=== PATIENT | female | born 1990 ===

== ENCOUNTER 2017-12-13 19:44 | Inpatient (IN) | payer OTHER ==
[2017-12-13] MEDS ORDERED: Sodium Chloride 0.9% 1,000 ML IV STA (20:00)
[2017-12-13] MEDS ORDERED: Morphine 4 MG/ML VIAL ONE ×2 (20:08→21:19)
--- NOTE | 2017-12-13 20:59 | ED PDOC ---
Upper Extremity Pain/Injury Time Seen by Provider: 12/13/17 19:53 Chief Complaint (Nursing): Upper Extremity Problem/Injury Chief Complaint (Provider): Upper Extremity Problem/Injury History Per: Patient History/Exam Limitations: no limitations Onset/Duration Of Symptoms: Hrs (x1), Sudden Onset (1x) Current Symptoms Are (Timing): Still Present Additional Complaint(s): Dhara Macias, a 27 year old female, presents to the ED complaining of left elbow pain after falling and hitting elbow upon entering bathtub one hour prior to arrival. The patient states her left elbow developed swelling, pain, and difficulty with movement after the fall. The patient denies injury to head or shoulders. No other complaints were noted. PCP: none provided Past Medical History Reviewed: Historical Data, Nursing Documentation, Vital Signs Vital Signs: Last Vital Signs Temp 97.9 F 12/13/17 19:52 Pulse 58 L 12/13/17 19:52 Resp 18 12/13/17 19:52 BP 127/76 12/13/17 19:52 Pulse Ox 100 12/13/17 19:52 - Medical History PMH: No Chronic Diseases - Surgical History Surgical History: No Surg Hx - Family History Family History: States: Unknown Family Hx - Social History Current smoker - smoking cessation education provided: No Alcohol: None Drugs: Denies - Home Medications Home Medications: Ambulatory Orders Medication Instructions Recorded RX: No Known Home Med 12/13/17 - Allergies Allergies/Adverse Reactions: Allergies Allergy/AdvReac Type Severity Reaction Status Date / Time No Known Allergies Allergy Verified 12/13/17 19:52 Review of Systems ROS Statement: Except As Marked, All Systems Reviewed And Found Negative Musculoskeletal: Positive for: Arm Pain (left elbow with swelling and d eformity). Negative for: Shoulder Pain (or injury) Neurological: Negative for: Other (head injury) Physical Exam - Reviewed Nursing Documentation Reviewed: Yes Vital Signs Reviewed: Yes - Physical Exam Head Exam: Positive for: ATRAUMATIC, NORMOCEPHALIC Cardiovascular/Chest: Positive for: Regular Rate, Rhythm Respiratory: Positive for: Normal Breath Sounds Pulses-Radial (L): 2+ (and ulnar) Gastrointestinal/Abdominal: Positive for: Normal Exam, Soft. Negative for: Tenderness Extremity: Positive for: Tenderness (left elbow upon palpitation), Capillary Refill (of digits < 2 seconds), Deformity (to left elbow), Swelling (significant edema/swelling to left elbow), Other (2+ pulses (radial and ulnar) intact. Sensation to digits of left hand is intact and patient moves all digits freely). Negative for: Normal ROM (limited ROM at left elbow) Neurologic/Psych: Positive for: Alert, Oriented. Negative for: Motor/Sensory Deficits (left elbow and digits) - Laboratory Results Result Diagrams: 12/13/17 21:27 12/13/17 21:27 - ECG O2 Sat by Pulse Oximetry: 100 (RA) Pulse Ox Interpretation: Normal Medical Decision Making Medical Decision Making: Initial Impression: 27 year old female with acute left elbow injury. Initial Plan: * Labs * Morphine 6mg IVP * IV fluids * Zofran inj 4mg IV * XR left elbow Time: 2029 --XR left elbow interpreted by provider: distal humerus fracture with posterior displacement. Time: 2044 --Call made out to Dr. Romero, ortho inbound sales consultant. Time: 2057 --Case discussed with Dr. Romero. Patient will require hospital admission for left elbow repair and reduction tomorrow morning. Patient made aware and agrees with plan of care. Time: 2129 --As per Dr. Romero request reduction attempt be performed at bedside. Reduction performed by provider with limited success. Patient remains n eurovascularly intact with good sensation. Post splint applied to left elbow with sling in use. Case d/w Dr Kennedy. CT elbow also ordered at request of Dr Romero ----- Scribe Attestation: Documented by Jazz Mckeon, acting as a scribe for Jemal Curtis MD. Provider Scribe Attestation: All medical record entries made by the Scribe were at my direction and personally dictated by me. I have reviewed the chart and agree that the record accurately reflects my personal performance of the history, physical exam, medical decision making, and the department course for this patient. I have also personally directed, reviewed, and agree with the discharge instructions and dis position. Disposition - Clinical Impression Clinical Impression: Elbow fracture, left - Patient ED Disposition Is Patient to be Admitted: Yes Counseled Patient/Family Regarding: Studies Performed, Diagnosis - Disposition Disposition Time: 21:00 Condition: FAIR - Pt Status Changed To: Hospital Disposition Of: Inpatient - Admit Certification Admit to Inpatient:: After my assessment, the patient will require hospitalization for at least two midnights. This is because of the severity of symptoms shown, intensity of services needed, and/or the medical risk in this patient being treated as an outpatient. - POA Present On Arrival: Falls Or Trauma
[2017-12-13] MEDS ORDERED: Lactated Ringer's 1,000 ML IV SCH (21:30)
[2017-12-13 21:35] LABS: BASO % 0.7 % (0.0-2.0); EOS % 0.6 % (0.0-4.0); HEMOGLOBIN 13.8 g/dL (12.0-16.0); LYMPH # 2.1 K/uL (1.0-4.3); LYMPH % 37.8 % (20.0-40.0); MEAN CELL VOLUME 94.5 fl (81.0-99.0); MEAN CORPUSCULAR HGB CONC 32.8 g/dL (33.0-37.0); MEAN PLATELET VOLUME 9.2 fl (7.2-11.7); MONO # 0.7 K/uL (0.0-0.8); MONO % 11.9 % (0.0-10.0); NEUT # 2.7 K/uL (1.8-7.0); NRBC % 0.1 % (0.0-0.0); RBC 4.45 Mil/uL (3.80-5.20); RED CELL DISTRIBUTION WIDTH 13.2 % (11.5-14.5); WHITE BLOOD COUNT 5.6 K/uL (4.8-10.8)
[2017-12-13 21:42] LABS: INR 0.9; PROTHROMBIN TIME 10.2 Seconds (9.8-13.1)
[2017-12-13 21:44] LABS: PARTIAL THROMBOPLASTIN TIME 31.7 Seconds (25.6-37.1)
[2017-12-13 21:45] LABS: ALB/GLOB RATIO 1.3 (1.0-2.1); ALBUMIN 4.6 g/dL (3.5-5.0); ALT/SGPT 32 U/L (9-52); AST/SGOT 47 U/L (14-36); BLOOD UREA NITROGEN 11 mg/dl (7-17); CALCIUM 9.1 mg/dL (8.4-10.2); GFR NON-AFRICAN AMERICAN > 60
--- NOTE | 2017-12-13 22:08 | CP.PCM.HP ---
<Mick White - Last Filed: 12/13/17 22:03> History of Present Illness - History of Present Illness History of Present Illness: 27 year old female presented after falling in the bathtub and hitting her elbow. She came to ED after fall. She is complaining of severe pain in left elbow, she had swelling and limited range of motion. Her pain is now worse after closed reduction performed in ED. She is complaining of nausea. No pain in any other joint. She denies any past medical history. PMH: none Medications: None Allergies: NKDA Social: occasional tobacco and alcohol use. Surgical Hx: denies Present on Admission - Present on Admission Any Indicators Present on Admission: No Review of Systems - Review of Systems All systems: reviewed and no additional remarkable complaints except - Musculoskeletal Musculoskeletal: Joint Swelling (L elbow), Other (pain left arm). absent: Numbness, Tingling Past Patient History - Past Social History Alcohol: None Drugs: Denies - PSYCHIATRIC Hx Substance Use: No - SURGICAL HISTORY Hx Surgeries: No - ANESTHESIA Hx Anesthesia: No Meds Allergies/Adverse Reactions: Allergies Allergy/AdvReac Type Severity Reaction Status Date / Time No Known Allergies Allergy Verified 12/13/17 19:52 Physical Exam - Constitutional Appears: Non-toxic - Head Exam Head Exam: ATRAUMATIC, NORMAL INSPECTION, NORMOCEPHALIC - Eye Exam Eye Exam: EOMI, Normal appearance, PERRL - ENT Exam ENT Exam: Mucous Membranes Moist - Respiratory Exam Respiratory Exam: Clear to Auscultation Bilateral, NORMAL BREATHING PATTERN. absent: Rales, Rhonchi, Wheezes - Cardiovascular Exam Cardiovascular Exam: REGULAR RHYTHM, +S1, +S2. absent: Tachycardia, Diastolic murmur, Systolic Murmur - GI/Abdominal Exam GI & Abdominal Exam: Normal Bowel Sounds, Soft. absent: Distended, Guarding, Tenderness - Extremities Exam Extremities exam: Positive for: normal capillary refill. Negative for: pedal edema Additional comments: Left arm wraped in MAKI bandage with sling at approx 90deg flexion 2+radial pulse bilaterally able to move fingers left hand - Neurological Exam Neurological exam: Alert, Oriented x3 - Psychiatric Exam Psychiatric exam: Normal Affect, Normal Mood - Skin Skin Exam: Dry, Intact, Normal Color, Warm Results - Vital Signs Recent Vital Signs: Last Vital Signs Temp 97.9 F 12/13/17 19:52 Pulse 58 L 12/13/17 19:52 Resp 18 12/13/17 19:52 BP 127/76 12/13/17 19:52 Pulse Ox 100 12/13/17 21:54 - Labs Result Diagrams: 12/13/17 21:27 12/13/17 21:27 Labs: Laboratory Results - last 24 hr 12/13/17 12/13/17 12/13/17 20:12 21:27 21:27 WBC 5.6 RBC 4.45 Hgb 13.8 Hct 42.1 MCV 94.5 MCH 31.0 MCHC 32.8 L RDW 13.2 Plt Count 219 MPV 9.2 Neut % (Auto) 49.0 L Lymph % (Auto) 37.8 Gove % (Auto) 11.9 H Eos % (Auto) 0.6 Baso % (Auto) 0.7 Neut # (Auto) 2.7 Lymph # (Auto) 2.1 Gove # (Auto) 0.7 Eos # (Auto) 0.0 Baso # (Auto) 0.0 PT INR APTT Sodium 137 Potassium 3.2 L Chloride 101 Carbon Dioxide 26 Anion Gap 13 BUN 11 Creatinine 0.7 Est GFR ( Amer) > 60 Est GFR (Non-Af Amer) > 60 Random Glucose 98 Calcium 9.1 Total Bilirubin 0.3 AST 47 H ALT 32 Alkaline Phosphatase 85 Total Protein 8.1 Albumin 4.6 Globulin 3.5 Albumin/Globulin Ratio 1.3 Serum HCG, Qual Negative 12/13/17 21:27 WBC RBC Hgb Hct MCV MCH MCHC RDW Plt Count MPV Neut % (Auto) Lymph % (Auto) Gove % (Auto) Eos % (Auto) Baso % (Auto) Neut # (Auto) Lymph # (Auto) Gove # (Auto) Eos # (Auto) Baso # (Auto) PT 10.2 INR 0.9 APTT 31.7 Sodium Potassium Chloride Carbon Dioxide Anion Gap BUN Creatinine Est GFR ( Amer) Est GFR (Non-Af Amer) Random Glucose Calcium Total Bilirubin AST ALT Alkaline Phosphatase Total Protein Albumin Globulin Albumin/Globulin Ratio Serum HCG, Qual Assessment & Plan - Assessment and Plan (Free Text) Assessment: #Fracture of Left Distal Humerus 27 year old female with no PMH aimitted for elbow fracture, s/p closed reduction in ED. For OR in AM. Neurovascularly intact. Hemodynamically stable. -NPO after midnight -IVF -Morphine for pain control -Zofran for nausea -Dr. Romero on consult (ortho) -SCDs -follow up labs : cbc, cmp, coags Case d/w attending. <BrentAdam A - Last Filed: 12/14/17 06:01> Results - Vital Signs Recent Vital Signs: Last Vital Signs Temp 97.6 F 12/14/17 00:28 Pulse 70 12/14/17 00:28 Resp 20 12/14/17 00:28 BP 140/84 12/14/17 00:28 Pulse Ox 100 12/14/17 01:00 - Labs Result Diagrams: 12/13/17 21:27 12/13/17 21:27 Labs: Laboratory Results - last 24 hr 12/13/17 12/13/17 12/13/17 20:12 21:27 21:27 WBC 5.6 RBC 4.45 Hgb 13.8 Hct 42.1 MCV 94.5 MCH 31.0 MCHC 32.8 L RDW 13.2 Plt Count 219 MPV 9.2 Neut % (Auto) 49.0 L Lymph % (Auto) 37.8 Gove % (Auto) 11.9 H Eos % (Auto) 0.6 Baso % (Auto) 0.7 Neut # (Auto) 2.7 Lymph # (Auto) 2.1 Gove # (Auto) 0.7 Eos # (Auto) 0.0 Baso # (Auto) 0.0 PT INR APTT Sodium 137 Potassium 3.2 L Chloride 101 Carbon Dioxide 26 Anion Gap 13 BUN 11 Creatinine 0.7 Est GFR ( Amer) > 60 Est GFR (Non-Af Amer) > 60 Random Glucose 98 Calcium 9.1 Total Bilirubin 0.3 AST 47 H ALT 32 Alkaline Phosphatase 85 Total Protein 8.1 Albumin 4.6 Globulin 3.5 Albumin/Globulin Ratio 1.3 Serum HCG, Qual Negative Urine Color Urine Clarity Urine pH Ur Specific Holt Urine Protein Urine Glucose (UA) Urine Ketones Urine Blood Urine Nitrate Urine Bilirubin Urine Urobilinogen Ur Leukocyte Esterase Urine RBC (Auto) Urine Microscopic WBC Ur Squamous Epith Cells 12/13/17 12/14/17 21:27 03:44 WBC RBC Hgb Hct MCV MCH MCHC RDW Plt Count MPV Neut % (Auto) Lymph % (Auto) Gove % (Auto) Eos % (Auto) Baso % (Auto) Neut # (Auto) Lymph # (Auto) Gove # (Auto) Eos # (Auto) Baso # (Auto) PT 10.2 INR 0.9 APTT 31.7 Sodium Potassium Chloride Carbon Dioxide Anion Gap BUN Creatinine Est GFR ( Amer) Est GFR (Non-Af Amer) Random Glucose Calcium Total Bilirubin AST ALT Alkaline Phosphatase Total Protein Albumin Globulin Albumin/Globulin Ratio Serum HCG, Qual Urine Color Yellow Urine Clarity Clear Urine pH 5.0 Ur Specific Holt 1.014 Urine Protein Negative Urine Glucose (UA) Neg Urine Ketones Negative Urine Blood Negative Urine Nitrate Negative Urine Bilirubin Negative Urine Urobilinogen 0.2-1.0 Ur Leukocyte Esterase Neg Urine RBC (Auto) 2 Urine Microscopic WBC 1 Ur Squamous Epith Cells < 1 Attending/Attestation - Attestation I have personally seen and examined this patient.: Yes I have fully participated in the care of the patient.: Yes I have reviewed all pertinent clinical information: Yes Notes (Text): 12/14/17 05:45 I saw, examined and discussed this patient with Dr White. I agree with the assessment and plan outlined which represent my direct input. This is a 27 years old female who slipped and fell in the bathroom resulting in a displaced, left distal Humerus fracture. External Reduction was attempted in the ED. A Posterior splint with sling was applied. The chest X Ray showed no active pathology, the Urinalysis was normal, EKG showed a sinus bradycardia which was due to the Dilauded given prior to the Attempt at external reduction. This will be repeated. Both INR and PTT were in normal ranges. The potassium was low. This is being repleated. This patient has no cardiac nor pulmonary history and is cleared for Surgery pending the Repeat EKG and improvement in Potassium. Adam Kennedy MD
[2017-12-14] MEDS ORDERED: HYDROmorphone 1 mg/ml ISec IVP ONE (03:41)
[2017-12-14 03:50] LABS: SQUAMOUS EPITHIAL < 1 /hpf (0-5); URINE BILIRUBIN NEGATIVE (NEGATIVE); URINE BLOOD NEGATIVE (NEGATIVE); URINE CLARITY CLEAR (Clear); URINE COLOR YELLOW (YELLOW); URINE GLUCOSE (UA) NEG (Normal); URINE LEUKOCYTE ESTERASE NEG Leu/uL (Negative); URINE PROTEIN NEGATIVE (NEGATIVE); URINE UROBILINOGEN 0.2-1.0 mg/dL (0.2-1.0)
[2017-12-14] MEDS ORDERED: Potassium Chloride 20 mEq ER Tab PO STA (06:02)
[2017-12-14] MEDS: Potassium CL 10 MEQ/50 ML 50 ML IVPB SCH ×2 (06:11→07:23)
[2017-12-14] MEDS ORDERED: STERILE IRRIGATING SOLUTION 15 ML IR ONE (08:56)
--- NOTE | 2017-12-14 09:11 | RAD ---
Date of service: 12/13/2017 HISTORY: admit COMPARISON: No prior. FINDINGS: LUNGS: No active pulmonary disease. PLEURA: No significant pleural effusion identified, no pneumothorax apparent. CARDIOVASCULAR: No atherosclerotic calcification present Normal. OSSEOUS STRUCTURES: No significant abnormalities. VISUALIZED UPPER ABDOMEN: Normal. OTHER FINDINGS: None. IMPRESSION: No active disease.
[2017-12-14] MEDS ORDERED: Propofol 10 mg/ml Inj (20 ML) ONE (09:14)
[2017-12-14] MEDS ORDERED: Rocuronium 10 mg/ml (5 ml) ONE (09:15)
[2017-12-14] MEDS ORDERED: Lactated Ringer's 1,000 ML IV ONE (09:15)
[2017-12-14] MEDS ORDERED: Succinylcholine 200 mg/10 ml Inj IV ONE (09:15)
[2017-12-14] MEDS ORDERED: Midazolam 2 MG/2 ML VIAL ONE (09:15)
--- NOTE | 2017-12-14 09:25 | RAD ---
Date of service: 12/13/2017 PROCEDURE: Radiographs of the left elbow. HISTORY: elbow pain COMPARISON: No prior. FINDINGS: BONES: There is a a diagonal-oblique displaced fracture traversing the lateral epicondyle left humerus. The larger proximal humeral fracture fragment is displaced anteriorly and distally JOINTS: Normal. No osteoarthritis. SOFT TISSUES: Normal. JOINT EFFUSION: Apparent small joint effusion OTHER FINDINGS: None IMPRESSION: There is a a diagonal-oblique displaced fracture traversing the lateral epicondyle left humerus.
[2017-12-14] MEDS ORDERED: Neostigmine 1:1000 (1 mg/ml) Inj ONE (10:03)
--- NOTE | 2017-12-14 10:10 | PCM.SURG1 ---
Surgeon's Initial Post Op Note - Surgeon's Notes Surgeon: Nick Clinical Transformation Specialist: none Type of Anesthesia: General Endo Anesthesia Administered By: DR Pablo Rodríguez Pre-Operative Diagnosis: Fracture dislocarion L elbow. FRacture distal lateral humeral condyle Operative Findings: as above Post-Operative Diagnosis: as above Operation Performed: Closed reduction dislocated L elbow. closed redcution ditsal Layeral huimeral condyle fx. applx long arm posterior split. positioning of fluyor/interpreation of video images Specimen/Specimens Removed: N/A Estimated Blood Loss: EBL {In ML}: 0 Blood Products Given: N/A Drains Used: No Drains Post-Op Condition: Good Date of Surgery/Procedure: 12/14/17 Time of Surgery/Procedure: 09:30 (time in room/anaesthesia indcution time 9:15)
--- NOTE | 2017-12-14 10:14 | CT ---
Date of service: 12/13/2017. PROCEDURE: CT of the left elbow. HISTORY: Elbow fracture. COMPARISON: Correlation made with the plain film radiographs left elbow obtained earlier same day TECHNIQUE: Contiguous helical/transaxial images of the left elbow were obtained. Coronal and sagittal reformats were generated. Radiation dose: Total exam DLP = 308.11 mGy-cm. This CT exam was performed using one or more of the following dose reduction techniques: Automated exposure control, adjustment of the mA and/or kV according to patient size, and/or use of iterative reconstruction technique. FINDINGS: BONES: There is a intra-articular fracture traversing the lateral epicondyle. The radial humeral joint remains intact (with the smaller humeral fragment) however there is anterior and distal displacement dislocation of the larger proximal humeral fragment with respect to the ulna. Nondisplaced radial head fracture not excluded. No significant degenerative osteoarthritis. SOFT TISSUES: There is surrounding soft tissue swelling and joint effusion.. IMPRESSION: There is a diagonal/oblique fracture of the lateral epicondyle however the radiohumeral the joint remains intact (with the smaller humeral fragment). There is anterior and distal displacement dislocation of the larger proximal humeral fragment with respect to the ulna. Nondisplaced radial head fracture not excluded
--- NOTE | 2017-12-14 10:40 | RAD ---
Date of service: 12/14/2017 PROCEDURE: Intraoperative Fluoroscopy. HISTORY: LT ELBOW CLOSED REDUCTION FINDINGS: Fluoroscopic assistance was provided. Fluoroscopy time = 20.9 sec. Radiation dose = 0.52 mGy. . Please refer to the operative report from [facility] Por[facility].
[2017-12-14] MEDS ORDERED: Lactated Ringer's 1,000 ML IV SCH (10:45)
--- NOTE | 2017-12-14 11:24 | CP.PCM.PN ---
Subjective - Date & Time of Evaluation Date of Evaluation: 12/14/17 Time of Evaluation: 07:15 - Subjective Subjective: Patient seen and examined bedside this morning before surgery. Reports left elbow pain 7/10 intensity Hemodynamically stable. Objective - Vital Signs/Intake and Output Vital Signs (last 24 hours): Temp Pulse Resp BP Pulse Ox 98.1 F 42 L 18 118/73 100 12/14/17 10:50 12/14/17 11:05 12/14/17 11:05 12/14/17 11:05 12/14/17 11:05 Intake and Output: 12/14/17 12/14/17 06:59 18:59 Intake Total 900 Balance 900 - Medications Medications: Current Medications Acetaminophen (Tylenol 325mg Tab) 650 mg PO Q6 PRN PRN Reason: Pain, Mild (1-3) Hydromorphone HCl (Dilaudid) 0.5 mg IVP Q5M PRN PRN Reason: Pain, moderate (4-7) Lactated Ringer's (Lactated Ringer's) 1,000 mls @ 100 mls/hr IV .Q10H [facility] Last Admin: 12/13/17 22:03 Dose: 100 mls/hr Lactated Ringer's (Lactated Ringer's) 1,000 mls @ 75 mls/hr IV .[id number] [facility] Morphine Sulfate (Morphine) 4 mg IVP Q4 PRN PRN Reason: Pain, moderate (4-7) Ondansetron HCl (Zofran Inj) 4 mg IVP Q6 PRN PRN Reason: Nausea/Vomiting Last Admin: 12/14/17 04:05 Dose: 4 mg - Labs Labs: 12/13/17 21:27 12/13/17 21:27 PT 10.2 Seconds (9.8-13.1) 12/13/17 21:27 INR 0.9 12/13/17 21:27 APTT 31.7 Seconds (25.6-37.1) 12/13/17 21:27 - Constitutional Appears: No Acute Distress - Head Exam Head Exam: ATRAUMATIC, NORMOCEPHALIC - Eye Exam Eye Exam: Normal appearance - Respiratory Exam Respiratory Exam: Clear to Ausculation Bilateral. absent: Rales - Cardiovascular Exam Cardiovascular Exam: REGULAR RHYTHM, +S1, +S2 - Extremities Exam Additional comments: Left arm wraped in MAKI bandage with sling at approx 90deg flexion 2+radial pulse bilaterally able to move fingers left hand - Neurological Exam Neurological Exam: Alert, Awake Assessment and Plan - Assessment and Plan (Free Text) Plan: Assessment/Plan 1) Fracture of Left Distal Humerus 27 year old female with no PMH aimitted for elbow fracture, s/p closed reduction in ED. For OR today AM Neurovascularly intact. Hemodynamically stable. -NPO -IVF -Morphine for pain control -Zofran for nausea -pending to go OR for surgery with Dr. Romero -SCDs
--- NOTE | 2017-12-14 11:50 | CARD ---
APPROVED REPORT Date of service: 12/13/2017 EKG Measurement Heart [id number] ND [id number] <Conclusion> Sinus bradycardia Otherwise normal ECG
--- NOTE | 2017-12-14 12:24 | RAD ---
Date of service: 12/14/2017 PROCEDURE: Radiographs of the left elbow. HISTORY: Status post closed redcution L elbow fx dislocation COMPARISON: Comparison made with earlier radiographs and CT scan left elbow FINDINGS: BONES: There has been interval closed reduction previously noted displaced intra-articular fracture fracture dislocation of the humerus/elbow.. Satisfactory alignment JOINTS: Normal. No osteoarthritis. SOFT TISSUES: Soft tissue swelling and joint effusion present. JOINT EFFUSION: As above the OTHER FINDINGS: None IMPRESSION: interval closed reduction previously noted displaced intra-articular fracture fracture dislocation of the humerus/elbow.. Satisfactory alignment above discussion for additional details
--- NOTE | 2017-12-14 14:49 | CP.PCM.PCO ---
<JoselynSaNancy - Last Filed: 12/14/17 15:24> Assessment/Plan - Assessment and Plan (Free Text) Assessment: 27 YO female with no sig PMHx is admitted for elbow fracture. Patient underwent closed reduction of dislocated L elbow, and distal humeral condyle fracture. Pt is seen and examined post-op, POD0 VS remain stable, tolerated PO regular diet, and ambulating to the bathroom. Pain is well controlled with pain meds. O: VS reviewed remains afebrile. GEN: NAD, LUE covered, moving all finger, good cap refill HEENT: EOMI Cardio: S1S2, bradycardia, no murmurs Resp: clear breath sounds b/l Abdomen: BS+, NT, soft Neuro: AAO x 3 Ext: no edema, no tenderness A/P: 27 YO Female, doing well POD0, s/p closed reduction of dislocated L elbow, and distal humeral condyle fracture. -Neurovascularly intact. Hemodynamically stable <Karla Alan - Last Filed: 12/15/17 09:46> Attending/Attestation - Attestation I have personally seen and examined this patient.: Yes I have fully participated in the care of the patient.: Yes I have reviewed all pertinent clinical information: Yes Notes (Text): 12/15/17 09:46 agree with findings and plan as above. patient doing well postop. for additional procedures Mon.
[2017-12-15 07:54] LABS: BLOOD UREA NITROGEN 10 mg/dl (7-17); CALCIUM 8.5 mg/dL (8.4-10.2); GFR NON-AFRICAN AMERICAN > 60
--- NOTE | 2017-12-15 09:39 | CP.PCM.PN ---
<AnupamSantosh sarkar - Last Filed: 12/15/17 11:55> Subjective - Date & Time of Evaluation Date of Evaluation: 12/15/17 Time of Evaluation: 07:30 - Subjective Subjective: Patient seen and examined bedside. Patient is s/p closed reduction of dislocated L elbow, and distal humeral condyle fracture. Reports left elbow pain has improved with dilaudid after surgery. Hemodynamically stable. Neurovascularly intact. Objective - Vital Signs/Intake and Output Vital Signs (last 24 hours): Temp Pulse Resp BP Pulse Ox 98.6 F 65 20 125/76 96 12/15/17 08:03 12/15/17 08:03 12/15/17 08:03 12/15/17 08:03 12/15/17 08:03 - Medications Medications: Current Medications Acetaminophen (Tylenol 325mg Tab) 650 mg PO Q6 PRN PRN Reason: Pain, Mild (1-3) Last Admin: 12/15/17 05:19 Dose: 650 mg Hydromorphone HCl (Dilaudid) 0.5 mg IVP Q5M PRN PRN Reason: Pain, moderate (4-7) Lactated Ringer's (Lactated Ringer's) 1,000 mls @ 100 mls/hr IV .Q10H [facility] Last Admin: 12/13/17 22:03 Dose: 100 mls/hr Lactated Ringer's (Lactated Ringer's) 1,000 mls @ 75 mls/hr IV .[id number] [facility] Morphine Sulfate (Morphine) 4 mg IVP Q4 PRN PRN Reason: Pain, moderate (4-7) Ondansetron HCl (Zofran Inj) 4 mg IVP Q6 PRN PRN Reason: Nausea/Vomiting Last Admin: 12/14/17 04:05 Dose: 4 mg - Labs Labs: 12/13/17 21:27 12/15/17 05:25 PT 10.2 Seconds (9.8-13.1) 12/13/17 21:27 INR 0.9 12/13/17 21:27 APTT 31.7 Seconds (25.6-37.1) 12/13/17 21:27 - Constitutional Appears: No Acute Distress - Respiratory Exam Respiratory Exam: Clear to Ausculation Bilateral. absent: Rales - Cardiovascular Exam Cardiovascular Exam: REGULAR RHYTHM, +S1, +S2 - GI/Abdominal Exam GI & Abdominal Exam: Soft, Normal Bowel Sounds. absent: Tenderness - Extremities Exam Additional comments: Left arm wrapped. 2+radial pulse bilaterally.distal neurovascular intact. - Neurological Exam Neurological Exam: Alert, Awake Assessment and Plan - Assessment and Plan (Free Text) Plan: Assessment/Plan 1) Fracture of Left Distal Humerus -s/p closed reduction of dislocated L elbow, and distal humeral condyle fracture POD #1 -pain control dilaudid, morphine -zofran for nausea -incentive spirometry -pending for a 2nd surgery on saturday 2) DVT Prophylaxis -scd <Karla Alan - Last Filed: 12/15/17 12:48> Objective - Vital Signs/Intake and Output Vital Signs (last 24 hours): Temp Pulse Resp BP Pulse Ox 98.6 F 65 20 125/76 96 12/15/17 08:03 12/15/17 08:03 12/15/17 08:03 12/15/17 08:03 12/15/17 08:03 - Medications Medications: Current Medications Acetaminophen (Tylenol 325mg Tab) 650 mg PO Q6 PRN PRN Reason: Pain, Mild (1-3) Last Admin: 12/15/17 05:19 Dose: 650 mg Hydromorphone HCl (Dilaudid) 0.5 mg IVP Q5M PRN PRN Reason: Pain, moderate (4-7) Lactated Ringer's (Lactated Ringer's) 1,000 mls @ 100 mls/hr IV .Q10H [facility] Last Admin: 12/13/17 22:03 Dose: 100 mls/hr Lactated Ringer's (Lactated Ringer's) 1,000 mls @ 75 mls/hr IV .[id number] [facility] Morphine Sulfate (Morphine) 4 mg IVP Q4 PRN PRN Reason: Pain, moderate (4-7) Ondansetron HCl (Zofran Inj) 4 mg IVP Q6 PRN PRN Reason: Nausea/Vomiting Last Admin: 12/14/17 04:05 Dose: 4 mg - Labs Labs: 12/13/17 21:27 12/15/17 05:25 PT 10.2 Seconds (9.8-13.1) 12/13/17 21:27 INR 0.9 12/13/17 21:27 APTT 31.7 Seconds (25.6-37.1) 12/13/17 21:27 Attending/Attestation - Attestation I have personally seen and examined this patient.: Yes I have fully participated in the care of the patient.: Yes I have reviewed all pertinent clinical information, including history, physical exam and plan: Yes Notes (Text): 12/15/17 12:47 Agree with findings and plan as above. Doing well, pain is controlled. Patient scheduled for OR Saturday.
--- NOTE | 2017-12-15 17:15 | OP ---
PROCEDURE DATE: 12/14/2017 PREOPERATIVE DIAGNOSES: 1. Fracture dislocation of the left elbow. 2. Displaced rotated fracture of the distal lateral humeral condyle. POSTOPERATIVE DIAGNOSES: 1. Fracture dislocation of the left elbow. 2. Displaced rotated fracture of the distal lateral humeral condyle. OPERATIVE FINDINGS: Fracture dislocation of the left elbow with a fracture of the distal lateral humeral condyle. SURGEON: Hector Romero MD ELECTRICIAN: No application assistant. TYPE OF ANESTHESIA: General endotracheal anesthesia. Anesthesia administered by Dr. Pablo Rodríguez. OPERATION PERFORMED: 1. Closed reduction of dislocated left elbow. 2. Closed reduction of distal lateral humeral condylar fracture. 3. Application of long-arm posterior splint. 4. Positioning of fluoroscope, interpretation of video images. SPECIMENS: No specimens. BLOOD LOSS: No blood loss. BLOOD PRODUCTS: No blood products given. DRAINS: No drains. POSTOPERATIVE CONDITION: Stable. TIME IN THE ROOM: 09:15 PROCEDURE TIME INITIATED: 09:30. OPERATIVE INDICATIONS Dhara Macias is a 27-year-old woman who is in the [employer] business, who presents with a fracture dislocation of the left elbow after having fallen in the shower. The patient presents with marked deformity of the elbow. The patient has been evaluated in the emergency room. The patient was splinted and admitted. CT scan examination was accomplished. Pros, cons, risks and benefits of surgical approach were discussed. The concept of closed reduction was discussed. The concept of a most likely two-stage procedure was discussed. The concept of closed reduction of the dislocation since the patient did have some mild neurologic signs would be accomplished. Because of the massive swelling, the surgery would be staged to open reduction and internal fixation in 2-3 days when the swelling is decreased. Pros, cons, risks and benefits of the proposed procedure discussed. The possibility of mechanical failure, infection, further fracture, propagation of fracture, thromboembolic disease, possibility of elbow stiffness, possibility of secondary or even tertiary surgery was discussed. The patient understands and, in the presence of her roommate, offers informed consent. OPERATIVE PROCEDURE: After having obtained informed consent, after having identified the left side as side, site and procedure and a critical pause/time-out after the satisfactory induction of general endotracheal anesthesia by Dr. Pablo Rordíguez with an emphasis on paralysis so as to complete the operative goal, the left upper extremity was evaluated under fluoroscopy. Under the surgeon's direction, the fluoroscope was positioned, video images were generated and therapeutic decisions were made therefrom. Closed reduction was attempted initially with the circulating nurse grasping the brachium very far proximally. This was hyperextended and again two failed reduction attempts occurred. Verification of position was offered on AP and lateral image intensification views. At this point in time, again with hyperextension and traction and flexion while exerting downward pressure on the humerus, the elbow fracture was reduced. At this point in time, attention was turned to the lateral humeral condyle which was displaced. This reduction was accomplished as well with manipulation. It should be noted that this was a very rare type of fracture dislocation of the elbow because the distal lateral humeral condyle was kept in the olecranon fossa while the remainder of the radial aspect the humerus was rotated and dislocated anteriorly. This reduction having been accomplished, verification of position was offered on AP and lateral image intensification views. With the reduction having been accomplished, the lateral humeral condyle reduction having been accomplished as well, a well-padded Abebe Calixto compression dressing and posterior splint was applied with the forearm supinated maintaining the reduction. Again, the patient was told specifically that a secondary procedure would be required for open reduction and internal fixation after the swelling diminishes. The patient is aware of this and open reduction will be accomplished as soon as the swelling diminishes, either Saturday or Saturday. Again, it was offered whether I needed to call the parent. The patient had presented with her roommate and she offers her own informed consent. The patient's neurocirculatory status was intact. It should be noted that on presentation, the patient did have some diminished sensation in the dorsal aspect of the hand and the index two fingers. This is better after the closed reduction. Also, the patient never had a simona motor deficit. The radial, median and ulnar nerves were reviewed and tested. Hector Romero MD
[2017-12-16 06:25] LABS: BASO % 0.6 % (0.0-2.0); EOS # 0.1 K/uL (0.0-0.7); EOS % 1.2 % (0.0-4.0); HEMOGLOBIN 12.2 g/dL (12.0-16.0); LYMPH # 2.2 K/uL (1.0-4.3); LYMPH % 39.7 % (20.0-40.0); MEAN CORPUSCULAR HEMOGLOBIN 31.5 pg (27.0-31.0); MEAN CORPUSCULAR HGB CONC 33.9 g/dL (33.0-37.0); MEAN PLATELET VOLUME 9.3 fl (7.2-11.7); MONO # 0.5 K/uL (0.0-0.8); MONO % 8.8 % (0.0-10.0); NEUT # 2.7 K/uL (1.8-7.0); NEUT % 49.7 % (50.0-75.0); NRBC % 0.1 % (0.0-0.0); RBC 3.86 Mil/uL (3.80-5.20); RED CELL DISTRIBUTION WIDTH 13.2 % (11.5-14.5); WHITE BLOOD COUNT 5.4 K/uL (4.8-10.8)
[2017-12-16 06:32] LABS: BLOOD UREA NITROGEN 9 mg/dl (7-17); CALCIUM 8.7 mg/dL (8.4-10.2); GFR NON-AFRICAN AMERICAN > 60
--- NOTE | 2017-12-16 09:58 | CP.PCM.PN ---
Addendum entered and electronically signed by Gibson Cloud MD 12/16/17 14:32: Patient seen. All chart and clinical data reviewed.Agree with assessment and plan s/p closed reduction and ORIF of left lateral humerus condylar fracture. Nerve block was applied by anesthesia Cleared by ortho for discharge Will d/c home on Percoset PRN for pain Follow up with Dr. Romero in 1 week Original Note: Subjective - Date & Time of Evaluation Date of Evaluation: 12/16/17 Time of Evaluation: 09:58 - Subjective Subjective: 27 yo female seen and evaluated resting comfortably at bedside. States that she is in minimal pain today. Denies any acute events overnight. Has been NPO. Denies N/V/F/C/SOB/CP. Being taken to the OR today for left elbow ORIF. Objective - Vital Signs/Intake and Output Vital Signs (last 24 hours): Temp Pulse Resp BP Pulse Ox 97.7 F 59 L 19 129/79 98 12/16/17 08:17 12/16/17 08:17 12/16/17 08:17 12/16/17 08:17 12/16/17 08:17 - Medications Medications: Current Medications Acetaminophen (Tylenol 325mg Tab) 650 mg PO Q6 PRN PRN Reason: Pain, Mild (1-3) Last Admin: 12/15/17 16:08 Dose: 650 mg Hydromorphone HCl (Dilaudid) 0.5 mg IVP Q5M PRN PRN Reason: Pain, moderate (4-7) Lactated Ringer's (Lactated Ringer's) 1,000 mls @ 100 mls/hr IV .Q10H COUNTS INCLUDE 234 BEDS AT THE [facility] Last Admin: 12/13/17 22:03 Dose: 100 mls/hr Lactated Ringer's (Lactated Ringer's) 1,000 mls @ 75 mls/hr IV .[id number] [place] Last Admin: 12/16/17 02:24 Dose: 75 mls/hr Morphine Sulfate (Morphine) 4 mg IVP Q4 PRN PRN Reason: Pain, moderate (4-7) Ondansetron HCl (Zofran Inj) 4 mg IVP Q6 PRN PRN Reason: Nausea/Vomiting Last Admin: 12/14/17 04:05 Dose: 4 mg - Labs Labs: 12/16/17 05:30 12/16/17 05:30 PT 10.2 Seconds (9.8-13.1) 12/13/17 21:27 INR 0.9 12/13/17 21:27 APTT 31.7 Seconds (25.6-37.1) 12/13/17 21:27 - Constitutional Appears: Well, Non-toxic, No Acute Distress - Head Exam Head Exam: ATRAUMATIC, NORMOCEPHALIC - Eye Exam Eye Exam: EOMI, Normal appearance - ENT Exam ENT Exam: Mucous Membranes Moist - Neck Exam Neck Exam: Full ROM - Respiratory Exam Respiratory Exam: Clear to Ausculation Bilateral, NORMAL BREATHING PATTERN - Cardiovascular Exam Cardiovascular Exam: REGULAR RHYTHM, +S1, +S2 - GI/Abdominal Exam GI & Abdominal Exam: Soft, Normal Bowel Sounds - Extremities Exam Extremities Exam: Normal Capillary Refill. absent: Pedal Edema Additional comments: left arm wrapped and splinted neurovascular status intact b/l - Neurological Exam Neurological Exam: Alert, Awake, Oriented x3 - Psychiatric Exam Psychiatric exam: Normal Affect, Normal Mood - Skin Skin Exam: Dry, Warm Assessment and Plan - Assessment and Plan (Free Text) Assessment: 27 yo female seen and evaluated for left distal humerus fracture Plan: 1) Fracture of Left Distal Humerus -s/p closed reduction of dislocated L elbow, and distal humeral condyle fracture POD #2 -left elbow x-ray - displaced intraarticular fracture of the humers - post reduction x-ray show satisfactory alignment -Ortho consulted - recs appreciated -pain control dilaudid, morphine -zofran for nausea -incentive spirometry -left elbow ORIF today, NPO status confirmed 2) DVT Prophylaxis -scd
[2017-12-16] MEDS ORDERED: Lactated Ringer's 1,000 ML IV ONE (10:15)
[2017-12-16] MEDS ORDERED: Propofol 10 mg/ml Inj (20 ML) ONE (10:32)
[2017-12-16] MEDS ORDERED: Succinylcholine 200 mg/10 ml Inj IV ONE (10:33)
[2017-12-16] MEDS ORDERED: Midazolam 2 MG/2 ML VIAL ONE (10:33)
[2017-12-16] MEDS ORDERED: Absorbable Gelatin Sponge Size 12-7 ONE (10:59)
[2017-12-16] MEDS ORDERED: Thrombin Topical 5,000 Int Units Spray Kit ONE (10:59)
[2017-12-16] MEDS ORDERED: Bacitracin Ointment 30 GM TUBE ONE (11:00)
[2017-12-16] MEDS ORDERED: EPINEPHrine 1 mg/ml (1:1000) Inj ONE (11:05)
[2017-12-16] MEDS ORDERED: Rocuronium 10 mg/ml (5 ml) ONE ×2 (11:13→12:38)
[2017-12-16] MEDS ORDERED: Thrombin Topical 5,000 Int Units Spray Kit TOP ONE ×2 (13:09)
[2017-12-16] MEDS ORDERED: Absorbable Gelatin Sponge Size 12-7 TP ONE (13:09)
[2017-12-16] MEDS ORDERED: Bacitracin Opht OINT 3.5GM OU ONE (13:10)
[2017-12-16] MEDS ORDERED: Neostigmine 1:1000 (1 mg/ml) Inj ONE (13:28)
[2017-12-16] MEDS ORDERED: Bupivacaine HCl 0.5% PF (30 ml) Inj ONE (13:37)
[2017-12-16] MEDS ORDERED: Oxycodone/Acetaminophen 5/325 mg Tab PO PRN (13:47)
--- NOTE | 2017-12-16 13:57 | PCM.SURG1 ---
Surgeon's Initial Post Op Note - Surgeon's Notes Surgeon: Nick Skiver Uppers Or Linings: ELIZA Barba/ Type of Anesthesia: General Endo, Block Regional Pre-Operative Diagnosis: Displaced/ rotated lateral condylar fx L distal humerus. s/p fx dislocation L elbow Operative Findings: as above Post-Operative Diagnosis: as above Operation Performed: ORIF lkateral humeral condyalr fx. closed redcuiton dislocated L elbow. posterior splint aplication. positiong of fluoro/ interpretation of video images Specimen/Specimens Removed: fx callous Estimated Blood Loss: EBL {In ML}: 5 Blood Products Given: N/A Drains Used: No Drains Post-Op Condition: Good Date of Surgery/Procedure: 12/16/17 Time of Surgery/Procedure: 11:45 (time in room 1030/)
--- NOTE | 2017-12-16 14:07 | CP.PCM.DIS ---
Addendum entered and electronically signed by Gibson Cloud MD 12/16/17 14:50: Patient seen. All chart and clinical data reviewed.Agree with assessment and plan s/p closed reduction and ORIF of left lateral humerus condylar fracture. Nerve block was applied by anesthesia Cleared by ortho for discharge Will d/c home on Percoset PRN for pain Follow up with Dr. Romero in 1 week Original Note: Provider - Provider Date of Admission: 12/13/17 21:10 Attending physician: Adam Kennedy Consults: Orthopedic - Dr. Romero Time Spent in preparation of Discharge (in minutes): 30 Diagnosis - Discharge Diagnosis (1) Elbow fracture, left Status: Acute Hospital Course - Lab Results Lab Results: Most Recent Lab Values WBC 5.4 K/uL (4.8-10.8) 12/16/17 05:30 RBC 3.86 Mil/uL (3.80-5.20) 12/16/17 05:30 Hgb 12.2 g/dL (12.0-16.0) 12/16/17 05:30 Hct 35.9 % (34.0-47.0) 12/16/17 05:30 MCV 93.0 fl (81.0-99.0) 12/16/17 05:30 MCH 31.5 pg (27.0-31.0) H 12/16/17 05:30 MCHC 33.9 g/dL (33.0-37.0) 12/16/17 05:30 RDW 13.2 % (11.5-14.5) 12/16/17 05:30 Plt Count 179 K/uL (130-400) 12/16/17 05:30 MPV 9.3 fl (7.2-11.7) 12/16/17 05:30 Neut % (Auto) 49.7 % (50.0-75.0) L 12/16/17 05:30 Lymph % (Auto) 39.7 % (20.0-40.0) 12/16/17 05:30 [place] % (Auto) 8.8 % (0.0-10.0) 12/16/17 05:30 Eos % (Auto) 1.2 % (0.0-4.0) 12/16/17 05:30 Baso % (Auto) 0.6 % (0.0-2.0) 12/16/17 05:30 Neut # (Auto) 2.7 K/uL (1.8-7.0) 12/16/17 05:30 Lymph # (Auto) 2.2 K/uL (1.0-4.3) 12/16/17 05:30 [place] # (Auto) 0.5 K/uL (0.0-0.8) 12/16/17 05:30 Eos # (Auto) 0.1 K/uL (0.0-0.7) 12/16/17 05:30 Baso # (Auto) 0.0 K/uL (0.0-0.2) 12/16/17 05:30 PT 10.2 Seconds (9.8-13.1) 12/13/17 21:27 INR 0.9 12/13/17 21:27 APTT 31.7 Seconds (25.6-37.1) 12/13/17 21:27 Sodium 140 mmol/l (132-148) 12/16/17 05:30 Potassium 4.2 MMOL/L (3.6-5.0) 12/16/17 05:30 Chloride 106 mmol/L (98-107) 12/16/17 05:30 Carbon Dioxide 28 mmol/L (22-30) 12/16/17 05:30 Anion Gap 10 (10-20) 12/16/17 05:30 BUN 9 mg/dl (7-17) 12/16/17 05:30 Creatinine 0.6 mg/dl (0.7-1.2) L 12/16/17 05:30 Est GFR ( Amer) > 60 12/16/17 05:30 Est GFR (Non-Af Amer) > 60 12/16/17 05:30 Random Glucose 95 mg/dL (65-105) 12/16/17 05:30 Calcium 8.7 mg/dL (8.4-10.2) 12/16/17 05:30 Total Bilirubin 0.3 mg/dl (0.2-1.3) 12/13/17 21:27 AST 47 U/L (14-36) H 12/13/17 21:27 ALT 32 U/L (9-52) 12/13/17 21:27 Alkaline Phosphatase 85 U/L (38-126) 12/13/17 21:27 Total Protein 8.1 G/DL (6.3-8.2) 12/13/17 21:27 Albumin 4.6 g/dL (3.5-5.0) 12/13/17 21:27 Globulin 3.5 gm/dL (2.2-3.9) 12/13/17 21: Albumin/Globulin Ratio 1.3 (1.0-2.1) 12/13/17 21:27 Serum HCG, Qual Negative (NEGATIVE) 12/13/17 20:12 Urine Color Yellow (YELLOW) 12/14/17 03:44 Urine Clarity Clear (Clear) 12/14/17 03:44 Urine pH 5.0 (5.0-8.0) 12/14/17 03:44 Ur Specific [place] 1.014 (1.003-1.030) 12/14/17 03:44 Urine Protein Negative mg/dL (NEGATIVE) 12/14/17 03:44 Urine Glucose (UA) Neg mg/dL (Normal) 12/14/17 03:44 Urine Ketones Negative mg/dL (NEGATIVE) 12/14/17 03:44 Urine Blood Negative (NEGATIVE) 12/14/17 03:44 Urine Nitrate Negative (NEGATIVE) 12/14/17 03:44 Urine Bilirubin Negative (NEGATIVE) 12/14/17 03:44 Urine Urobilinogen 0.2-1.0 mg/dL (0.2-1.0) 12/14/17 03:44 Ur Leukocyte Esterase Neg Tenzin/uL (Negative) 12/14/17 03:44 Urine RBC (Auto) 2 /hpf (0-3) 12/14/17 03:44 Urine Microscopic WBC 1 /hpf (0-5) 12/14/17 03:44 Ur Squamous Epith Cells < 1 /hpf (0-5) 12/14/17 03:44 - Hospital Course Hospital Course: 27 yo female patient with pmhx of hepatitis C at and 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 A closed reduction was performed in the ED by Dr. Romero and she was scheduled for another staged reduction 12/14/17. Procedure was performed by Dr. Romero in the OR. 12/16/17 patient had ORIF of the left humerus. While in house patients pain was controlled with dilaudid and morphine, she was given zofran for nausea, and used the incentive spirometer. Patients pain is well controlled, she was able to void on her own. Patient was given a nerve block and pain will be managed for at least 24 hours. Patient will be sent home with prescription for percocet for pain management and will follow up with Dr. Romero in one week. - Date & Time of H&P Date of H&P: 12/16/17 Time of H&P: 14:08 Discharge Exam - Head Exam Head Exam: ATRAUMATIC, NORMOCEPHALIC - Eye Exam Eye Exam: Normal appearance - ENT Exam ENT Exam: Mucous Membranes Moist - Neck Exam Neck exam: Normal Inspection - Respiratory Exam Respiratory Exam: Clear to PA & Lateral, NORMAL BREATHING PATTERN - Cardiovascular Exam Cardiovascular Exam: REGULAR RHYTHM, +S1, +S2 - GI/Abdominal Exam GI & Abdominal Exam: Normal Bowel Sounds, Soft. absent: Tenderness - Extremities Exam Extremities exam: pedal pulses present Additional comments: left arm in posterior splint s/p left lateral condyle of humerus ORIF neurovascular status intact b/l - Neurological Exam Neurological exam: Alert, Oriented x3 - Psychiatric Exam Psychiatric exam: Normal Affect, Normal Mood - Skin Skin Exam: Dry, Warm Discharge Plan - Follow Up Plan Condition: FAIR Disposition: HOME/ ROUTINE Instructions: Elbow Fracture (DC), Closed Fracture Reduction (DC) Additional Instructions: follow up with Dr. Romero 5-7 days. Referrals: Hector Romero III, MD [Staff Provider] - Clinical Quality Measures - Date & Time of Discharge Summary Date of Discharge Summary: 12/16/17 Time of Discharge Summary: 14:38
--- NOTE | 2017-12-16 14:10 | PCM.ANESB1 ---
Interscalene Block - Brachial Plexus Date of Procedure: 12/16/17 Anesthesiologist: Bill Pre-Procedure Diagnosis: left elbow fx Post-Procedure Diagnosis: same Procedure Performed: Interscalene Block of Brachial Plexus Left - Procedure Interscalene Block of Brachial Plexus: This procedure was explained to the patient that it is for post-operative pain management. Consent was obtained after a thorough discussion with the patient regarding the benefits and possible complications of local anesthetic block of the Brachial Plexus at the Interscalene area. The patient was brought to the Operating Room and standard monitors were applied. Time out was held with the circulating nurse to confirm the correct surgery and appropriate block. After applying Oxygen by nasal cannula and administering IV Sedation, the patient's head was gently rotated away from the __left____operative shoulder and the anterior scalene groove was carefully palpated. The ultrasound transducer was then applied to the skin in the transverse plane and the brachial plexus was visualized lateral to the carotid artery and in between the anterior and middle scalene muscles. After identification,the anterior lateral portion of the neck was prepped with Betadine solution three times and Lidocaine 1% was injected subcutaneously for topical analgesia. At this point, a # 22 gauge Stimuplex 2 inches insulated needle was inserted into the interscalene groove and directed in a caudal and midline direction. The needle was inserted lateral to the ultrasound transducer in-plane towards the brachial plexus in a [id number] direction. Needle advancement was performed carefully under direct ultrasound visualization. Nerve stimulator was used and twitched of the affected extremity including the hand brachialis muscles, biceps and the deltoid was obtained at a current of _0.3____MA. After repeated negative aspiration,__5___cc of_0.5____,_Bupivacaine_ were injected and this was followed with ___25__cc of __0.5___% ____Bupivacaine . Under ultrasound guidance the local anesthetics were observed surrounding the roots of the brachial plexus. The needle was removed intact and sterile dressing was applied. The patient had stable vital signs, was conscious and in no apparent distress. The patient tolerated the interscalene block of the bracheal plexus well with stable vital signs and was prepared for subsequent surgery.
[2017-12-16] MEDS ORDERED: Lactated Ringer's 1,000 ML IV SCH (14:15)
--- NOTE | 2017-12-16 14:55 | RAD ---
Date of service: 12/16/2017 PROCEDURE: Radiographs of the left elbow. HISTORY: s/p distal humerus ORIF, pt in PACU COMPARISON: 12/14/2017 FINDINGS: BONES: Status post ORIF the oblique intra-articular fracture of the lateral condyle/epicondyle. The fracture fragments are in near anatomic alignment. JOINTS: Normal. No osteoarthritis. SOFT TISSUES: Normal. JOINT EFFUSION: None. OTHER FINDINGS: None IMPRESSION: ORIF oblique intra-articular lateral condylar fracture.
[2017-12-16 17:22] VITALS: BP 135/78; PULSE 54; RESP 20; TEMP 96.7; O2SAT 20
--- NOTE | 2017-12-17 13:55 | OP ---
PROCEDURE DATE: 12/16/2017 PREOPERATIVE DIAGNOSES: 1. Displaced lateral condylar fracture left elbow. 2. Status post fracture dislocation left elbow, status post closed reduction and splint application. OPERATIVE PROCEDURES: 1. Open reduction and internal fixation of lateral condylar fracture. 2. Primary repair of lateral collateral ligament. 3. Closed reduction and verification of closed reduction of the prior elbow dislocation. 4. Application of posterior splint. 5. Positioning of fluoroscope, interpretation of video images. SURGEON: Hector Romero MD. SENIOR DOT NET DEVELOPER: SUSANA Arreola, certified registered nursing agency sales management assistant. SECOND WHARF ATTENDANT: Gilmer Jara PA-C ANESTHESIA: General endotracheal anesthesia, Dr. Rodríguez. COMPLICATIONS: No complications. DRAIN: No drains. OPERATIVE INDICATION: Dhara Macias is a 27-year-old woman who had slipped in the shower on Saturday sustaining a fracture dislocation of the elbow. Closed reduction was accomplished on Saturday morning. Because of the swelling open reduction was unable to be accomplished at that point in time. Pros, cons, risks and benefits of open reduction and internal fixation and verification of a closed reduction were accomplished on Saturday. The possibility of elbow stiffness, mechanical failure, infection, thromboembolic disease, secondary displacement discussed. The patient no longer withstands the discomfort and wished the surgery to the accomplished. OPERATIVE PROCEDURE: After having obtained informed consent, after having identified side, site and procedure and a critical pause/time-out, after the satisfactory induction of the anesthetic, the left upper extremity was prepped and free draped in usual fashion for upper extremity surgery. The tourniquet had been applied but was not yet inflated. Under the surgeon's direction, the fluoroscope was positioned, video images were generated, therapeutic decisions were made therefrom. After the verification of position had been accomplished, the upper extremity was exsanguinated using a 6-inch Esmarch bandage and tourniquet which had been applied was inflated to 250 mmHg. An incision was described centered on the lateral condyle extending superiorly along the lateral humeral ridge and superficial to the radial head. Great care was taken to be totally cognizant of the radial nerve and the superficial sensory branch of the radial nerve. Pros, cons, risks and benefits of surgery were discussed. The possibility of mechanical failure, infection, thromboembolic disease, stiffness, nerve injury, secondary or tertiary surgery were discussed. The possibility of fracture displacement because of the complexity of the fracture was discussed. After having obtained informed consent, after having identified side, site and procedure and pause/time-out, after the satisfactory induction of the anesthetic, the patient identified as Dhara Macias in the supine position with all bony prominence well padded. The left upper extremity was prepped and free draped in usual fashion for upper extremity surgery. The incision was described approximately four fingerbreadths proximal to the lateral condyle extending superficial to the radial head in the area of the lateral collateral ligament. Dissection was carried out very carefully again taking great care to be mindful of the radial nerve and its coursing. The radial nerve was protected. Dissection was carried out and the fracture site was identified. The radioulnar joint was left intact. Dissection was carried out in the area of the lateral collateral ligament and the capsule. Soft tissues were dissected anterior and posterior, the fracture site was identified. The fracture site was curetted of healing callus. Dissection was carried out proximally. Holding clamp was used to affix the fracture. The fracture having been fixed, curetting was accomplished of healing callus and at this point in time, the posterolateral plate Synthes applied to the posterolateral aspect of the humerus. Each sequential drill hole was drilled, sounded and the appropriate size screws placed. Verification of position was offered on AP and lateral image intensification views. This having been accomplished, autograft and allograft bone grafting is accomplished to the fracture site. The fracture position was found to be excellent. No screws were found to be introduced into the posterior aspect of the distal humeral fossa. This having been accomplished, soft tissues were elevated anteriorly and posteriorly. This having been accomplished, the wound was thoroughly irrigated. At this point, primary repair of the lateral collateral ligament was accomplished using the 0 FiberWire sutures with the elbow in approximately 30 degrees of extension. There was found to be evidence of varus-valgus stability. It should be noted that the trochlear region is reduced anatomically and it was fixed. This was accomplished by palpation and inspection on image intensification views. Under the surgeon's direction, the fluoroscope was positioned, video images were generated, therapeutic decisions were made therefrom. Allograft and autograft bone grafting was accomplished with DBX to the area of the fracture site. Primary closure of the muscle was accomplished. The ligament having been repaired, further closure was with interrupted Vicryl and FiberWire. Phil were applied. Abebe Calixto compression dressing and posterior splint having been applied, the patient was transferred from the operating table to the stretcher having tolerated procedure well. Verification of position is offered on AP and lateral image intensification views and essentially found to be anatomic. Hector Romero MD
--- NOTE | 2017-12-17 16:55 | RAD ---
Date of service: 12/16/2017 PROCEDURE: Fluoroscopic assistance in excess of 1 hour. HISTORY: LEFT ELBOW COMPARISON: None TECHNIQUE: Standard protocol for this study/examination. FINDINGS: Total fluoroscopic time (continuous mode) utilized during the procedure 19.3 (seconds). IMPRESSION: Submitted images from the current procedure: 7.0
== END 2017-12-16 19:40 | disposition home or self-care (01) | DRG 494 ==
LOC: H.ER 19:44 → H.ERHOLD 21:10 → H.MEDSURG1 23:30
PROVIDERS: ADMIT Internal Medicine; ATTEND Internal Medicine
PROC: 0PSGXZZ Reposition Left Humeral Shaft, External Approach (ICD-10-PCS; 2017-12-14)
PROC: 3E0T3BZ Introduction of Anesthetic Agent into Peripheral Nerves and Plexi, Percutaneous Approach (ICD-10-PCS; 2017-12-16)
PROC: 0MQ40ZZ Repair Left Elbow Bursa and Ligament, Open Approach (ICD-10-PCS; 2017-12-16)
PROC: 0PSG04Z Reposition Left Humeral Shaft with Internal Fixation Device, Open Approach (ICD-10-PCS; principal; 2017-12-16 10:45)
DX: S42.452A Displaced fracture of lateral condyle of left humerus, initial encounter for closed fracture (principal); W18.2XXA Fall in (into) shower or empty bathtub, initial encounter; Y93.E1 Activity, personal bathing and showering; Z86.19 Personal history of other infectious and parasitic diseases; Y92.002 Bathroom of unspecified non-institutional (private) residence as the place of occurrence of the external cause; R11.0 Nausea; R20.8 Other disturbances of skin sensation